=== PATIENT | male | born 1965 | race Caucasian/White ===

== ENCOUNTER 2018-06-10 13:30 | Emergency (ER) | payer OTHER ==
[2018-06-10 14:46] LABS: Absolute Lymphocytes (CBC) 1.3 K/uL (0.7-4.9); Absolute Monocytes 0.5 K/uL (0.1-1.3); Absolute Neutrophil 3.8 K/uL (1.8-8.0); Basophils % 0.8 % (0-1.3); Eosinophils % 4.6 % (0-4.4); Hematocrit 40.8 % (39.6-49.0); Lymphocytes % 21.4 % (15.3-44.8); MPV 8.3 fL (7.6-11.3); Monocytes % 8.5 % (3.3-12.3)
[2018-06-10 15:03] LABS: Albumin 4.2 g/dL (3.4-5.0); Bilirubin Direct 0.2 mg/dL (0-0.2); Bilirubin Total 0.8 mg/dL (0.2-1.0); Potassium 4.1 mmol/L (3.5-5.1); Protein, Total 8.2 g/dL (6.4-8.2)
--- NOTE | 2018-06-10 16:34 | RAD REPORT ---
EXAM DESCRIPTION: CT - Abdomen Pelvis W Contrast - 06/10/2018 4:24 pm CLINICAL HISTORY: Right lower abdominal pain COMPARISON: None. TECHNIQUE: Biphasic, helical CT imaging of the abdomen and pelvis was performed following 100 ml non -ionic IV contrast. Oral contrast was given. All CT scans are performed using dose optimization technique as appropriate and may include automated exposure control or mA/KV adjustment according to patient size. FINDINGS: No suspicious findings in the lung bases. The liver, spleen, and pancreas show no focal findings. Liver shows diffuse fatty infiltration. No ga llbladder or biliary tree abnormality. Symmetric renal function is seen with no hydronephrosis or suspicious renal mass. No pyelonephritis o r acute parenchymal process. No bladder abnormalities. No adrenal abnormalities. No dilated bowel loops or bowel wall thickening. No appendicitis or other acute GI finding. No free a ir, free fluid or inflammatory stranding. No mass or bulky lymphadenopathy. Fat extends into the david gin of each inguinal canal. No congestion or edema node fat within the right inguinal canal or right lower quadrant. No suspicious bony findings. No acute vascular finding. IMPRESSION: Contrast enhanced CT abdomen and pelvis showing no acute cious finding. Fatty infiltration of the liver. Nonacute findings detailed in the body of the report. No abnormality seen to explain right lower abdo men pain.
--- NOTE | 2018-06-10 17:10 | EDPHYS ---
Physician Documentation [facility] Name: Jose Ro Age: 52 yrs Sex: Male : 1965 Arrival Date: 06/10/2018 Time: 13:36 Bed 15 Private MD: ED Physician Javon Hernandez HPI: 06/10 14:11 This 52 yrs old Male presents to ER via Ambulatory with complaints of jmm Abdominal Pain. 14:11 The patient presents with abdominal pain right lower quadrant. Onset: The jmm symptoms/episode began/occurred gradually, 1 day(s) ago. The symptoms do not radiate. Associated signs and symptoms: Pertinent negatives: nausea and vomiting, diarrhea, fever, testicular pain. This is a 52 year old male with a history of htn, hlp that presents to the ED with complaints of right lower abdominal pain beginning yesterday. Symptoms worsened with walking. Patient denies scrotal pain. Denies fever. Denies vomiting or diarrhea. . Historical: - Allergies: 13:38 No Known Allergies; hj - PMHx: 13:38 Hypertension; Hyperlipidemia; hj - PSHx: 13:38 shoulder; cardiac cath; hj - Immunization history:: Adult Immunizations up to date. - Social history:: Smoking status: unknown. - Ebola Screening: : Patient negative for fever greater than or equal to 101.5 degrees Fahrenheit, and additional compatible Ebola Virus Disease symptoms Patient denies exposure to infectious person Patient denies travel to an Ebola-affected area in the 21 days before illness onset No symptoms or risks identified at this time. ROS: 14:11 Constitutional: Negative for fever, chills, and weight loss, Cardiovascular: Negative jmm for chest pain, palpitations, and edema, Respiratory: Negative for shortness of breath, cough, wheezing, and pleuritic chest pain. 14:11 Abdomen/GI: Positive for abdominal pain. 14:11 All other systems are negative. Exam: 14:11 Constitutional: This is a well developed, well nourished patient who is awake, alert, jmm and in no acute distress. Head/Face: atraumatic. Eyes: EOMI, no conjunctival erythema appreciated ENT: Moist Mucus Membranes Neck: Trachea midline, Supple Chest/axilla: Normal chest wall appearance and motion. Cardiovascular: Regular rate and rhythm. No edema appreciated Respiratory: Normal respirations, no respiratory distress appreciated 14:11 Abdomen/GI: Inspection: abdomen appears normal, Bowel sounds: normal, Palpation: soft, moderate abdominal tenderness, in the right lower quadrant. 14:11 Back: ROM is normal. 14:11 Musculoskeletal/extremity: ROM: intact in all extremities. 14:11 Skin: Appearance: Color: normal in color. 14:11 Neuro: Orientation: is normal, Mentation: is normal, Memory: is normal. 14:11 Psych: Behavior/mood is pleasant, cooperative. Vital Signs: 13:38 BP 146 / 94; Pulse 66; Resp 18; Temp 98.3(TE); Pulse Ox 100% on R/A; Weight 83.91 kg; hj Height 6 ft. 0 in. (182.88 cm); Pain 6/10; 15:15 BP 131 / 85; Pulse 60; Resp 16; Pulse Ox 98% on R/A; Pain 3/10; iw 13:38 Body Mass Index 25.09 (83.91 kg, 182.88 cm) hj MDM: 14:11 Patient medically screened. [facility] 17:06 Data reviewed: vital signs, nurses notes. Counseling: I had a detailed discussion with sina the patient and/or guardian regarding: the historical points, exam findings, and any diagnostic results supporting the discharge/admit diagnosis, lab results, radiology results, the need for outpatient follow up, to return to the emergency department if symptoms worsen or persist or if there are any questions or concerns that arise at home. ED course: I discussed with the patient the need to follow up with GI and given early appendicitis return precautions. patient and family understood and agrees with the plan of care. . 06/10 14:14 Order name: Urine Dipstick--Ancillary (enter results) em1 06/10 14:14 Order name: Basic Metabolic Panel; Complete Time: 15:37 [facility] 06/10 14:14 Order name: CBC with Diff; Complete Time: 15:37 [facility] 06/10 14:14 Order name: Creatinine for Radiology; Complete Time: 15:37 [facility] 06/10 14:14 Order name: Hepatic Function; Complete Time: 15:37 [facility] 06/10 14:14 Order name: Lipase; Complete Time: 15:37 [facility] 06/10 14:14 Order name: IV Saline Lock; Complete Time: 14:33 [facility] 06/10 14:14 Order name: Labs collected and sent; Complete Time: 14:33 [facility] 06/10 14:15 Order name: CT Abd/Pelvis - W/Contrast; Complete Time: 16:44 [facility] Administered Medications: No medications were administered Disposition: 17:58 Co-signature as Attending Physician, Javon Hernandez MD I agree with the assessment and kdr plan of care. Disposition: 06/10/18 17:10 Discharged to Home. Impression: Lower abdominal pain, unspecified. - Condition is Stable. - Discharge Instructions: Abdominal Pain, Adult. - Medication Reconciliation Form, Thank You Letter, Antibiotic Education, Prescription Opioid Use form. - Follow up: Private Physician; When: 2 - 3 days; Reason: Recheck today's complaints, Continuance of care, Re-evaluation by your physician. Signatures: Dispatcher [employer] [facility] Javon Hernandez MD MD [facility] Zhang Alvarez PA PA [facility] Alba Greenfield, RN RN iw Slim Mac RN RN Corrections: (The following items were deleted from the chart) 14:20 14:16 Abdomen Pelvis W Con+CT.RAD.BRZ ordered. [facility] 17:29 17:10 06/10/2018 17:10 Discharged to Home. Impression: Lower abdominal pain, iw unspecified. Condition is Stable. Forms are Medication Reconciliation Form, Thank You Letter, Antibiotic Education, Prescription Opioid Use. Follow up: Private Physician; When: 2 - 3 days; Reason: Recheck today's complaints, Continuance of care, Re-evaluation by your physician. [facility]
--- NOTE | 2018-06-10 17:10 | ER ---
Nurse's Notes [facility] Name: Jose Ro Age: 52 yrs Sex: Male : 1965 Arrival Date: 06/10/2018 Time: 13:36 Bed 15 Private MD: Diagnosis: Lower abdominal pain, unspecified Presentation: 06/10 13:36 Presenting complaint: Patient states: yesterday i started having R lower abd pain; hj denies N/V; denies fever and chills; denies diarrhea;. Transition of care: patient was not received from another setting of care. Onset of symptoms was June 10, 2018. Risk Assessment: Do you want to hurt yourself or someone else? Patient reports no desire to harm self or others. Initial Sepsis Screen: Does the patient meet any 2 criteria? No. Patient's initial sepsis screen is negative. Does the patient have a suspected source of infection? No. Patient's initial sepsis screen is negative. Care prior to arrival: None. 13:36 Method Of Arrival: Ambulatory 13:36 Acuity: KB 3 hj Historical: - Allergies: 13:38 No Known Allergies; hj - PMHx: 13:38 Hypertension; Hyperlipidemia; hj - PSHx: 13:38 shoulder; cardiac cath; hj - Immunization history:: Adult Immunizations up to date. - Social history:: Smoking status: unknown. - Ebola Screening: : Patient negative for fever greater than or equal to 101.5 degrees Fahrenheit, and additional compatible Ebola Virus Disease symptoms Patient denies exposure to infectious person Patient denies travel to an Ebola-affected area in the 21 days before illness onset No symptoms or risks identified at this time. Screenin:38 Abuse screen: Denies threats or abuse. Denies injuries from another. Nutritional iw screening: No deficits noted. Tuberculosis screening: No symptoms or risk factors identified. 16:20 Fall Risk None identified. iw Assessment: 14:00 General: Appears in no apparent distress. Behavior is calm, cooperative. Pain: iw Complains of pain in right lower quadrant Pain radiates to right low back. Neuro: Level of Consciousness is awake, alert, obeys commands, Oriented to person, place, time, situation, Moves all extremities. Full function. Cardiovascular: Patient's skin is warm and dry. Respiratory: Respiratory effort is even, unlabored, Respiratory pattern is regular. GI: Bowel sounds present X 4 quads. Abd is soft X 4 quads Abdomen is tender to palpation in right lower quadrant Reports lower abdominal pain, Patient currently denies diarrhea, nausea, vomiting. : Reports pain in suprapubic area Denies burning with urination. Derm: Skin is intact, is healthy with good turgor. Musculoskeletal: Range of motion: intact in all extremities. 14:34 Reassessment: pt finished drinking oral contrast, CT notified. iw Vital Signs: 13:38 BP 146 / 94; Pulse 66; Resp 18; Temp 98.3(TE); Pulse Ox 100% on R/A; Weight 83.91 kg; hj Height 6 ft. 0 in. (182.88 cm); Pain 6/10; 15:15 BP 131 / 85; Pulse 60; Resp 16; Pulse Ox 98% on R/A; Pain 3/10; iw 13:38 Body Mass Index 25.09 (83.91 kg, 182.88 cm) hj ED Course: 13:36 Patient arrived in ED. hj 13:37 Triage completed. hj 13:39 Arm band placed on right wrist. hj 13:40 Patient has correct armband on for positive identification. iw 13:56 Alba Greenfield, RN is Primary Nurse. iw 13:59 Zhang Alvarez PA is PHCP. [facility] 13:59 Javon Hernandez MD is Attending Physician. jmm 14:26 Initial lab(s) drawn, by nc, sent to lab. Inserted saline lock: 20 gauge in right dh3 antecubital area, using aseptic technique. Blood collected. 16:[address] via wheelchair. sj 16:24 CT Abd/Pelvis - W/Contrast In Process Unspecified. EDMS 17:00 No provider procedures requiring assistance completed. iw 17:28 IV discontinued, intact, bleeding controlled, No redness/swelling at site. Pressure iw dressing applied. Administered Medications: No medications were administered Outcome: 17:10 Discharge ordered by . jmm 17:28 Discharged to home ambulatory, with family. iw 17:28 Condition: good 17:28 Discharge instructions given to patient, family, Instructed on discharge instructions, follow up and referral plans. Demonstrated understanding of instructions, follow-up care. 17:29 Patient left the ED. iw Signatures: Dispatcher [employer] EDMS Natasha Alvarezel, PA PA jmm Tong, Linsey sj Jean Pierre, Alba, RN RN iw Bubba, Slim, RN RN Lorna Valladares 3 Corrections: (The following items were deleted from the chart) 13:40 13:38 Pulse 66bpm; Resp 18bpm; Pulse Ox 100% RA; Temp 98.3F Temporal; 83.91 kg; Height hj 6 ft. 0 in.; BMI: 25.0; Pain 6/10; hj
[2018-06-10 20:01] LABS: Urine Blood NEGATIVE (NEG); Urine Glucose NEGATIVE (NEG); Urine Protein NEGATIVE (NEG); Urine Specific Gravity <1.005 (1.005-1.030)
== END 2018-06-10 17:29 | disposition home or self-care (01) ==
LOC: ER 13:30
DX: R10.31 Right lower quadrant pain (principal); I10 Essential (primary) hypertension
CPT/HCPCS: 36415; 74177; 80048; 80076; 81003; 83690; 85025; 99284; Q9967

== ENCOUNTER 2024-07-13 10:27 | Observation (INO) | payer BC, OTHER ==
--- OUTSIDE RECORDS SUMMARY | 2024-07-13 10:30 | XMS REPORT | Continuity of Care Document ---
Author Name Unknown Address [address] [facility] [address] [place] [address] Organization [facility] [place] Address [address] [facility] [address] [place] [address] Care Team Providers Care Victorian Literature Professor Name Role Phone Linsey Talamantes MD Primary Care Physician LAB90 Attending Clinician Unavailable LINSEY TALAMANTES Attending Clinician UnaJOSE D Ahuja Attending Clinician Unavailab José Thomas Attending Clinician UnavailCALLY Novoa Attending Clinician Unavailable Cally Alvarado Attending Clinician [phone] Payers Payer Name Policy Type Policy Number Effective Date Expirati on Date Source [facility] 2 [id number] 2023 00:00:00 Problems Condition Name Condition Details Condition Category Status Onset Date Resolution Date Last Treatment Date Treating Clinician Comments Source Hx of colonic polyp Hx of colonic polyp Disease Active 05-17 00:00: 00 Katelyn Seybold - Externa l Rotator cuff disorder, left Rotator cuff disorder, left Disease Active 05-17 00:00: 00 Katelyn Seybold - Externa l Encounter for screening for diabetes mellitus Encounter for screening for diabetes mellitus Disease Active 05-17 00:00: 00 Katelyn Seybold - Externa l Hypertensi on Hypertensi on Disease Active 2020-02 00:00: 00 Katelyn Mcgrathybold - Externa l Frequency of urination Frequency of urination Disease Active 2020-02 00:00: 00 Katelyn Seybold - Externa l 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 Disease Active 2020-02 2- 00:00: 00 Katelyn Seybold - Externa l Chronic prostatiti s Chronic prostatiti s Disease Active 2020-02 2 00:00: 00 Katelyn Seybold - Externa l Low back pain without sciatica Low back pain without sciatica Disease Active 2020-02 2 00:00: 00 Katelyn Seybold - Externa l Abdominal pain Abdominal pain Disease Active 2020-02 2 00:00: 00 Katelyn Seybold - Externa l Hyperlipid emia Hyperlipid emia Disease Active 2020-02 2- 00:00: 00 Katelyn Seybold - Externa l Allergies, Adverse Reactions, Alerts Allergy Name Allergy Type Status Severity Reaction(s) Onset Date Inactive Date Treating Clinician Comments Source No Known Allergie s DA Active U 4-05 00:00: 00 LUIS ENRIQUE Weston No Known Allergie s DA Active U 2-15 00:00: 00 STLSJX Levoflox acin Propensi ty to adverse reaction s Active 2020-02 2- 00:00: 00 Katelyn Warner No Known Allergie s DA Active U 10-29 00:00: 00 [facility] Social History Social Habit Start Date Stop Date Quantity Comments Source Sexual orientation Fidencio de jesus Timmy - External Exposure to SARS-CoV-2 (event) Not sure Katelyn braun History of Social function 2023-11-22 00:00:00 2023-11-22 00:00:00 Katelyn Warner - External Tobacco use and exposure 2023-05-18 00:00:00 2023-05-18 00:00:00 Smokeless tobacco non-user Katelyn Timmy - External Sex 2020-05-21 17:12:38 2020-05-21 17:12:38 Male (finding) Katelyn Mcgrathaparna - External Sex Assigned At 1965 00:00:00 1965 00:00:00 Male [facility] Smoking Status Start Date Stop Date Source Unknown if ever smoked [facility] Never smoked tobacco Katelyn Warner - External Medications Ordered Medication Name Filled Medication Name Start Date Stop Date Current Medication? Ordering Clinician Indication Dosage Frequency Signature (SIG) Comments Components Source Aspirin 81 MG oral Tablet Delayed Response 11-21 10:23: 48 Yes 81mg QD Take 1 tablet (81 mg total) by mouth daily. Katelyn zheng Doxycycline Hyclate 100 MG oral Tablet 11-21 00:00: 00 Yes [id number] 100mg Q.5D Take 1 tablet (100 mg total) by mouth 2 times daily. Katelyn zheng levoFLOXaci n 500 MG oral Tablet 11-21 00:00: 00 11-21 00:00 :00 No [id number] 500mg QD Take 1 tablet (500 mg total) by mouth daily. Katelyn zheng Rosuvastati n Calcium 10 MG oral Tablet 11-11 00:00: 00 Yes [id number] 10mg QD Take 1 tablet (10 mg total) by mouth nightly. Katelyn zheng Esomeprazol e Magnesium (Nexium) 20 MG Capsule. 05-27 00:00: 00 No 20MG Daily [facility] Aspirin 81 MG oral Tablet Delayed Response 05-17 15:12: 13 Yes 81mg Take 1 tablet (81 mg total) by mouth daily. Katelyn zheng Losartan Potassium (COZAAR) 100 MG oral Tablet 3-14 00:00: 00 Yes Katelyn zheng Amlodipine Besylate (NORVASC) 5 MG oral Tablet - 00:00: 00 Yes 5mg Q.5D Take 1 tablet (5 mg total) by mouth 2 times daily FOR 90 DAYS. Katelyn zheng Hydrocodone Bit/Apap 5/325 ([place]) 5 MG/325 MG Tab 18 10:37: 29 05-27 13:38 :39 No 1TAB Every 6 Hours [facility] Amlodipine Besylate (Norvasc) 5 MG Tablet 04-08 01:00: 00 No 5MG Daily [facility] Aspirin (Ecotrin) 81 MG Tab - 01:00: 00 No 81MG Daily [facility] Cholecalcif daria (Vitamin D3) (Vitamin D3) 50 MCG Capsule 04-08 01:00: 00 No 50MCG Daily [facility] Losartan Potassium 04-08 01:00: 00 No 100MG Daily [facility] Rosuvastati n (Crestor) 10 MG Tab - 01:00: 00 No 10MG Daily [facility] Ubidecareno ne (Co Q-10) 200 MG Capsule - 01:00: 00 No 200MG Daily [facility] Vitamin B Complex - 01:00: 00 No 1CAP Daily [facility] Celecoxib 200 MG oral Capsule - 00:00: 00 05-17 00:00 :00 No [id number] TAKE 1 CAPSULE BY MOUTH TWICE A DAY Katelyn zheng Celecoxib (CeleBREX) 200 MG oral Capsule 2020-02- 00:00: 00 Yes [id number] 200mg Take 1 capsule (200 mg total) by mouth 2 times daily Katelyn Warner TRIMETHOPRI M-SULFAMETH OXAZOLE 800-160 MG oral Tablet 2020-02 00:00: 00 03-03 05:59 :00 No [id number] 1{tbl} Take 1 tablet by mouth 2 times daily Katelyn Warner Rosuvastati n Calcium 10 MG oral Tablet 11-11 00:00: 00 Yes Katelyn Warner Losartan Potassium 25 MG oral Tablet 11-11 00:00: 00 Yes Katelyn Warner Amlodipine Besylate 2.5 MG oral Tablet 08-06 00:00: 00 Yes 2.5mg Take 1 tablet (2.5 mg total) by mouth daily Katelyn Warner Losartan Potassium 50 MG oral Tablet 08-06 00:00: 00 Yes 50mg Take 1 tablet (50 mg total) by mouth daily Katelyn Warner Lovastatin 10 MG oral Tablet 08-06 00:00: 00 01-24 00:00 :00 No 10mg Take 1 tablet (10 mg total) by mouth nightly Katelyn Warner Vital Signs Vital Name Observation Time Observation Value Comments S ource Systolic blood pressure 2023-11-22 15:21:00 134 mm[Hg] Katelyn Rodriguez ld - External Diastolic blood pressure 2023-11-22 15:21:00 78 mm[Hg] Katelyn Rodriguez ld - External Heart rate 2023-11-22 15:21:00 88 /min Cande Warner - External Body temperature 2023-11-22 15:21:00 36.33 Meche Katelyn Warner - External Respiratory rate 2023-11-22 15:21:00 15 /min Katelyn Warner - External Body height 2023-11-22 15:21:00 182.9 cm Noelle Warner - External Body weight 2023-11-22 15:21:00 79.379 kg Noelle Warner - External BMI 2023-11-22 15:21:00 23.73 kg/m2 Noelle Warner - External WEIGHT 2023-05-28 13:37:00 81.331463 kg HEIGHT 2023-05-28 13:37:00 185.42 cm Systolic blood pressure 2023-05-18 20:07:00 122 mm[Hg] Katelyn Seybo ld - External Diastolic blood pressure 2023-05-18 20:07:00 74 mm[Hg] Katelyn Seybo ld - External Heart rate 2023-05-18 20:07:00 72 /min Kelse y Seybold - External Body temperature 2023-05-18 20:07:00 36.72 Meche Katelyn Seybold - External Respiratory rate 2023-05-18 20:07:00 18 /min Katelyn Seybold - External Body height 2023-05-18 20:07:00 182.9 cm Noelle ey Seybold - External Body weight 2023-05-18 20:07:00 82.101 kg Noelle ey Seybold - External BMI 2023-05-18 20:07:00 24.55 kg/m2 Noelle ey Seybold - External WEIGHT 2022-04-08 16:05:00 83.303441 kg HEIGHT 2022-04-08 16:05:00 185.42 cm Systolic blood pressure 2021-01-24 14:16:00 140 mm[Hg] Katelyn Seybo ld Diastolic blood pressure 2021-01-24 14:16:00 78 mm[Hg] Katelyn Seybo ld Heart rate 2021-01-24 14:16:00 70 /min Kelse y Seybold Body temperature 2021-01-24 14:16:00 36.67 Meche Katelyn Seybold Respiratory rate 2021-01-24 14:16:00 14 /min Katelyn Seybold Body weight 2021-01-24 14:16:00 83.008 kg Noelle ey Seybold Oxygen saturation in Arterial blood by Pulse oximetry 2021-01-24 14:16:00 100 /min Katelyn Seybo ld Procedures Procedure Date / Time Performed Performing Clinicia n Source XR Chest Pa & Lat STANDARD 2023-05-28 13:23:00 [facility] EKG 12 Lead 2023-05-28 13:23:00 [facility] Encounters Start Date/Time End Date/Time Encounter Type Admission Type Attending [facility] Care Department Encounter ID Source 2022-04-14 15:15:01 Outpatient [facility] [id number] [facility] 2022-02-27 08:41:01 Outpatient [facility] [id number] [facility] 2022-02-26 15:15:02 Outpatient [facility] [id number] [facility] 2021-10-31 16:12:02 Outpatient [facility] [id number] [facility] 2021-10-17 10:05:02 Outpatient [facility] [id number] [facility] 2021-10-15 09:32:02 Outpatient [facility] [id number] [facility] 2021-06-12 14:01:05 Outpatient [facility] [id number] [facility] 2021-06-10 09:33:04 Outpatient [facility] [id number] [facility] 2023-11-22 11:25:00 2023-11-22 11:25:00 Outpatient LAB90 KATELYN ARCHIBALD [id number] [facility] 2023-11-22 10:30:00 2023-11-22 10:30:00 Outpatient LINSEY TALAMANTES [id number] [facility] 2023-11-12 00:00:00 2023-11-12 00:00:00 Outpatient JOSE D REAL [id number] [facility] 2023-06-04 11:18:00 2023-06-04 11:18:00 Outpatient Luis E [place] José [facility] [id number] [facility] 2023-05-28 13:00:00 2023-05-28 13:01:00 Outpatient José Mcleod [facility] [id number] [facility] 2023-05-18 16:15:00 2023-05-18 16:15:00 Outpatient REUBEN ARCHIBALD KATELYN [id number] [facility] 2023-05-18 15:30:00 2023-05-18 15:30:00 Outpatient JOSE D REAL [facility] [id number] [facility]23-[facility]-12 15:00:00 2023-05-12 15:00:00 [id number] [facility] 2023-05-07 09:00:00 2023-05-07 09:00:00 Outpatient LINSEY TALAMANTES KATELYN ARCHIBALD [id number] [facility] 2022-04-10 05:45:00 2022-04-10 10:38:00 Outpatient R IeJosé hi [facility] [id number] [facility] 2022-03-31 08:46:00 2022-03-31 08:47:00 Outpatient R IeJosé hi [facility] [id number] [facility] 2022-02-11 07:00:00 2022-02-11 07:00:00 [facility] [id number] [facility] 2022-01-06 08:00:00 2022-01-21 23:59:00 Outpatient R José Israel [facility] [id number] [facility] 2021-12-30 08:07:00 2021-12-30 08:07:00 Outpatient R IeJosé hi [facility] [id number] [facility] 2021-12-09 08:00:00 2021-12-22 23:59:00 Outpatient R IeJosé hi [facility] [id number] [facility] 2021-12-02 08:00:00 2021-12-02 08:00:00 Outpatient R José Israel [facility] [id number] [facility] José Castanon 2021-11-25 08:12:00 2021-11-25 08:12:00 Outpatient R José Israel [facility] [id number] [facility] 2021-10-17 11:53:00 2021-10-17 11:54:00 Outpatient R José Israel [facility] [id number] [facility] 2021-03-22 00:00:00 2021-03-22 00:00:00 Outpatient CALLY GARNER KATELYN ARCHIBALD [id number] [facility] 2021-03-05 00:00:00 2021-03-05 00:00:00 Outpatient ALBINLINSEY KATELYN ARCHIBALD [id number] [facility] 2021-02-13 00:00:00 2021-02-13 00:00:00 Outpatient CALLY GARNER KATELYN ARCHIBALD [id number] [facility] 2021-01-24 09:25:00 2021-01-24 09:25:00 Outpatient LAB90 KATELYN ARCHIBALD [id number] [facility] 2021-01-24 08:30:00 2021-01-24 09:00:00 Office Visit BeatrizCally zheng Jackson [id number] [facility] Results Test Description Test Time Test Comments Results Result Co mments Source [id number] 14:30:00* Test Item Value Reference Range Interpretation Comme nts Hematology (test code = WBCT) 6.5 10x3/uL 3.5-10.5 N Hematology (test code = RBCT) 4.19 10x6/uL 4.32-5.72 L Hematology (test code = HGBT) 13.7 g/dL 13.5-17.5 N Hematology (test code = HCTT) 39.3 % 38.8-50.0 N Hematology (test code = MCV) 93.8 fl 81.2-95.1 N Hematology (test code = MCH) 32.7 pg 27.0-33.0 N Hematology (test code = MCHC) 34.9 g/dL 32.0-36.0 N Hematology (test code = RDW) 11.9 % 11.5-14.5 N Hematology (test code = PLTT) 222 10x3/uL 150-450 N Hematology (test code = MPV) 9.9 fl 7.4-10.4 N Hematology (test code = %NEUT) 57.5 % 40.0-75.0 N Hematology (test code = %LYMPH) 23.5 % 18.0-47.0 N Hematology (test code = %MONO) 10.4 % 0.0-10.0 H Hematology (test code = %EOS) 7.1 % 0.0-6.0 H Hematology (test code = %BASO) 1.2 % 0.0-2.0 N Hematology (test code = %IG) 0.3 % 0-5 N Hematology (test code = %NRBC) 0.0 % 0.0-0.0 N Hematology (test code = NEUT#) 3.75 10x3/uL 1.5-8.4 N Hematology (test code = LYMPH#XN) 1.5 10x3/uL 0.7-4.9 N Hematology (test code = MONO#) 0.68 10x3/uL 0.0-1.1 N Hematology (test code = EOS#) 0.46 10x3/uL 0.0-0.5 N Hematology (test code = BASO#) 0.08 10x3/uL 0.0-0.2 N Hematology (test code = IG#) 0.02 10x3/uL 0.00-0.50 N Hematology (test code = NRBC#) 0.00 10x3/uL None Seen Serum or plasma sodium measurement (moles/volume)2023-05-28 13:45:00* Test Item Value Reference Range Interpretation Comme nts Sodium Level (test code = 2951-2) 139 mmol/L 136-145 [facility] or plasma potassium measurement (moles/volume) 2023-05-28 13:45:00* Test Item Value Reference Range Interpretation Comme [facility] Potassium Level (test code = 2823-3) 4.2 mmol/L 3.5-5.1 [facility] or plasma chloride measurement (moles/volume) 2023-05-28 13:45:00* Test Item Value Reference Range Interpretation Comme [facility] Chloride Level (test code = 2075-0) 103 mmol/L 98-107 [facility] or plasma carbon dioxide, total measurement (moles/volume)2023-05-28 13:45:00* Test Item Value Reference Range Interpretation Comme [facility] Carbon Dioxide Level (test c ode = 2027-9) 27 mmol/L 22-29 [facility] or plasma anion [id number] 13:45:00* Test Item Value Reference Range Interpretation Comme [facility] Anion Gap (test code = 31592-0) 13 mmol/L 10-20 [facility] or plasma urea nitrogen measurement (mass/volume)2023-05-28 13:45:00* Test Item Value Reference Range Interpretation Comme [facility] Blood Urea Nitrogen (test co de = 3094-0) 15 mg/dL 8.4-25.7 [facility] or plasma creatinine measurement (mass/volume) 2023-05-28 13:45:00* Test Item Value Reference Range Interpretation Comme [facility] Creatinine (test code = 2160-0) 1.16 mg/dL 0.7-1.3 [facility]/1.73 sq M.predicted [Volume Rate/Area] in Serum, Plasma [id number] 13:45:00* Test Item Value Reference Range Interpretation Comme [facility] Estimated GFR (CKD-EPI 2020) (test code = 32016-3) 73 [facility] [Mass/volume] in Serum or [id number] 13:45:00* Test Item Value Reference Range Interpretation Comme [facility] Glucose Level (test code = 2345-7) 95 mg/dL 70-105 [facility] or plasma calcium measurement (mass/volume) 2023-05-28 13:45:00* Test Item Value Reference Range Interpretation Comme [facility] Calcium Level (test code = 64008-8) 9.9 mg/dL 7.8-10.44 [facility]uk[facility] [#/volume] in Blood by Automated count 2023-05-28 13:45:00* Test Item Value Reference Range Interpretation Comme [facility] White Blood Count (test code = 6690-2) 6.5 10x3/uL 3.5-10.5 [facility] erythrocytes automated count (number/volume) 2023-05-28 13:45:00* Test Item Value Reference Range Interpretation Comme [facility] Red Blood Count (test code = 789-8) 4.19 10x6/uL 4.32-5.72 [facility] (mass/volume)2023-05-28 13:45:00* Test Item Value Reference Range Interpretation Comme [facility] Hemoglobin (test code = 718-7) 13.7 g/dL 13.5-17.5 [facility] eryth[facility] mean corpuscular volume 2023-05-28 13:45:00* Test Item Value Reference Range Interpretation Comme [facility] Mean Corpuscular Volume (lacey t code = 787-2) 93.8 fl 81.2-95.1 [facility] eryth[facility] mean corpuscular hemoglobin (mass per erythrocyte)2023-05-28 13:45:00* Test Item Value Reference Range Interpretation Comme [facility] Mean Corpuscular Hemoglobin (test code = 785-6) 32.7 pg 27.0-33.0 [facility] eryth[facility] mean corpuscular hemoglobin concentration measurement (mass/[id number] 13:45:00* Test Item Value Reference Range Interpretation Comme [facility] Mean Corpuscular Hemoglobin Concent (test code = 786-4) 34.9 g/dL 32.0-36.0 [facility] distribution width ratio 2023-05-28 13:45:00* Test Item Value Reference Range Interpretation Comme [facility] Red Cell Distribution Width (test code = 788-0) 11.9 % 11.5-14.5 [facility] blood platelet count (count/volume) 2023-05-28 13:45:00* Test Item Value Reference Range Interpretation Comme [facility] Platelet Count (test code = 777-3) 222 10x3/uL 150-450 [facility] platelet mean [id number] 13:45:00* Test Item Value Reference Range Interpretation Comme [facility] Mean Platelet Volume (test c ode = 39975-1) 9.9 fl 7.4-10.4 [facility] neutrophils/100 [id number] 13:45:00* Test Item Value Reference Range Interpretation Comme [facility] Neutrophils % (test code = 770-8) 57.5 % 40.0-75.0 [facility]ymph[facility]/100 leukocytes in Blood by Automated count 2023-05-28 13:45:00* Test Item Value Reference Range Interpretation Comme [facility] Lymphocytes % (test code = 736-9) 23.5 % 18.0-47.0 [facility] monocytes/100 [id number] 13:45:00* Test Item Value Reference Range Interpretation Comme [facility] Monocytes % (test code = 5905-5) 10.4 % 0.0-10.0 [facility] blood eosinophils/100 [id number] 13:45:00* Test Item Value Reference Range Interpretation Comme [facility] Eosinophils % (test code = 713-8) 7.1 % 0.0-6.0 [facility] basophils/100 [id number] 13:45:00* Test Item Value Reference Range Interpretation Comme [facility] Basophils % (test code = 706-2) 1.2 % 0.0-2.0 [facility] neutrophils automated count (number/volume) 2023-05-28 13:45:00* Test Item Value Reference Range Interpretation Comme [facility] Neutrophils # (test code = 751-8) 3.75 10x3/uL 1.5-8.4 [facility] monocytes automated count (number/volume) 2023-05-28 13:45:00* Test Item Value Reference Range Interpretation Comme [facility] Monocytes # (test code = 742-7) 0.68 10x3/uL 0.0-1.1 [facility] eosinophils automated count (count/volume) 2023-05-28 13:45:00* Test Item Value Reference Range Interpretation Comme nts Eosinophils # (test code = 711-2) 0.46 10x3/uL 0.0-0.5 [facility] blood basophil count (count/volume) 2023-05-28 13:45:00* Test Item Value Reference Range Interpretation [facility] Bas[facility] # (test code = 704-7) 0.08 10x3/uL 0.0-0.2 [facility] 09:37:00* Test Item Value Reference Range Interpretation [facility] Coagulation (test code = PT-T) 10.0 sec 9.5-12.1 N Coagulation (test code = INR) 0.9 INR Reference Range -------The recommended therapeutic ranges for oral anticoagulanttreatments are: ------ Standard Dose: 2.0 - 3.0 High Risk: 2.5 - 3.5 Anticoagulant? [id number] 09:37:00* Test Item Value Reference Range Interpretation [facility] Chemistry (test code = NA-T) 138 mmol/L 136-145 N Chemistry (test code = K-T) 4.3 mmol/L 3.5-5.1 N Chemistry (test code = CL) 104 mmol/L 98-107 N Chemistry (test code = CO2) 26 mmol/L 22-29 N Chemistry (test code = ANGP) 12 mmol/L 10-20 N Chemistry (test code = BUN) 17 mg/dL 8.4-25.7 N Chemistry (test code = CREATT) 1.11 mg/dL 0.7-1.3 N Chemistry (test code = EGFRCR) 77 Reference Range for Estimated GFR: Greater than 90 mL/min/1.73 w2Pyourgxm eGFR is based on the CKD-EPI 2020 equation thatdoes not use a race coefficient. Chemistry (test code = GLU-T) 99 mg/dL 70-105 N Chemistry (test code = CA) 9.7 mg/dL 7.8-10.44 N [id number] 09:29:00* Test Item Value Reference Range Interpretation Comme nts Hematology (test code = WBCT) 4.5 10x3/uL 3.5-10.5 N Hematology (test code = RBCT) 4.28 10x6/uL 4.32-5.72 L Hematology (test code = HGBT) 13.8 g/dL 13.5-17.5 N Hematology (test code = HCTT) 39.7 % 38.8-50.0 N Hematology (test code = MCV) 92.8 fl 81.2-95.1 N Hematology (test code = MCH) 32.2 pg 27.0-33.0 N Hematology (test code = MCHC) 34.8 g/dL 32.0-36.0 N Hematology (test code = RDW) 11.7 % 11.5-14.5 N Hematology (test code = PLTT) 220 10x3/uL 150-450 N Hematology (test code = MPV) 9.5 fl 7.4-10.4 N Hematology (test code = %NEUT) 51.6 % 40.0-75.0 N Hematology (test code = %LYMPH) 29.1 % 18.0-47.0 N Hematology (test code = %MONO) 10.1 % 0.0-10.0 H Hematology (test code = %EOS) 7.4 % 0.0-6.0 H Hematology (test code = %BASO) 1.6 % 0.0-2.0 N Hematology (test code = %IG) 0.2 % 0-5 N Hematology (test code = %NRBC) 0.0 /100 WBC 0.0-0.0 N Hematology (test code = NEUT#) 2.3 10x3/uL 1.5-8.4 N Hematology (test code = LYMPH#XN) 1.3 10x3/uL 0.7-4.9 N Hematology (test code = MONO#) 0.5 10x3/uL 0.0-1.1 N Hematology (test code = EOS#) 0.3 10x3/uL 0.0-0.5 N Hematology (test code = BASO#) 0.1 10x3/uL 0.0-0.2 N Hematology (test code = IG#) 0.01 10x3/uL 0.00-0.50 N XR Chest Pa Lat STANDARD [facility] BRYANName: NANDO SANTOS : 1965 [facility]: TOMNANDO MERCHANT [address] [place] [address] Phys: [place] [address] : 1965 Age: 57 SEX:M Exam Date: 05/28/23 Status: REG CLI Acct: [id number] Loc: LABBT Pt Unit #: [id number] Report #: [id number] CC: José Israel MD : IMAGING SERVICES REPORT Report Status: Signed Order # Category/Exam [id number]/XR Chest Pa Lat STANDARD ([id number]): . Results EXAM: Two views chest PROVIDED CLINICAL HISTORY: Preop COMPARISON: 03/31/2022 FINDINGS: Heart and mediastinum: Cardiac and mediastinal silhouette iswithin normal limits. Lung parenchyma: No focal consolidation evident. Pleural space: No pleural fluid or pneumothorax evident. Other: None. IMPRESSION: No evidence for an acute cardiopulmonary process. Reported By: Abdirahman Antoine MDElectronically Signed Date/Time: 05/28/231408 Technologist: Dictated Date/Time: 05/28/231408 Transcribed Date/Time:XR Chest Pa Lat STANDARDLUIS ENRIQUE [facility] JOSÉ Reeceme: NANDO SANTOS : 1965 [facility]: [facility] NANDO SANTOS [address] [facility] Phys: [place] [address] : 1965 Age: 56 SEX:M Exam Date: 03/31/22 Status: REG CLI Acct: [id number] Loc: LABBT Pt Unit #: [id number] Report #: [id number] CC: José Israel MD IMAGING SERVICES REPORT Report Status: Signed Order # Category/Exam [id number] RAD/XR Chest Pa Lat STANDARD ([id number]): . Results EXAM: Two views chest PROVIDED CLINICAL HISTORY:Preoperative evaluation. COMPARISON: None FINDINGS: Cardiac silhouette and pulmonary vasculature are within normal limits. Minimal biapical pleural thickening. Lungs otherwise clear without consolidation or pleural fluid. The osseous structures have a normal appearance. IMPRESSION: No acute cardiopulmonary process. Reported By:Marcello Henriquez MD Electronically Signed Date/Time: 03/31/22920 Technologist: Dictated Date/Time:03/31/22920 Transcribed Date/Time:MRI Upper Ext Jt Rt WO Con [facility] Shade: TOMNANDO : 1965 [facility]: [facility] [address] Phys: [place] [address] : 1965 Age: 56 SEX:M [phone] Exam Date: 10/17/21 Status: REG CLI Acct: [id number] [facility] Unit #: [id number] Report #: [id number] CC: José Israel MD MRI REPORTOrder # Category/Exam [id number] MRI/MRI Upper Ext Jt Rt WO Con ([id number]): . Results REASON FOR EX AM: 56 years old Male with internal derangement of the right shoulder. History of right shoulder surgery 20 years prior. TIME OF EXAM: 10/17/2021 12:25 PM COMPARISON: Right shoulder radiographs 10/14/2021 TECHNIQUE: Routine noncontrast multiplanar, multisequence MRI of the right shoulder was obtained. FINDINGS: FLUID: Glenohumeral joint: physiologic Long head of the biceps tendon sheath: physiologic Subacromial subdeltoid bursa: Edema ROTATOR CUFF: Postoperative changes from prior rotator cuff repair. There is associated susceptibility artifact in the deltoid muscle. The conjoined tendon is thinned/attenuated at the critical zone. There is low to intermediate gradearticular sided tearing of the conjoint tendon at the insertion. Intermediate grade articular sided tearing of the distal tendonfibers of the subscapularis. Teres minor is intact. Muscle volume: Maintained Long head of the biceps tendon: Intra-articular portion not visualized LABRUM: The labrum is not well evaluate on this convention MRI; however there is likely tearing of the chondral-labral junction of the anterior-inferior labrum. Superior labral anterior posterior tear also noted with extension into the biceps labral anchor. GLENOHUMERAL CARTILAGE: Low-grade chondral thinning. BONES: Intraosseous ganglion at the lesser tuberosity. ACROMIOCLAVICULAR JOINT: The right acromion has a type I, flat undersurface. There is anterior downsloping. There is moderate degenerative change at the AC joint. OTHER: No axillary adenopathy. IMPRESSION: 1. Findings of prior rotator cuff repair with thinned appearance of the conjoint tendon at the critical zone. Low to intermediate grade articular sided tearing of the conjoint tendon at the footprint. 2. Intermediate grade articular sided tearing of the distal fibers of the subscapularis tendon. 3. Intra-articular long head biceps tendon not visualized likely due to tearing.4. Superior labral anterior posterior type IV tear (extension into the biceps labral anchor). 5. Anterior downsloping of the acromion which may predispose to rotator cuff impingement. 6. 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 Subacromial subdeltoid bursitis. Reported By: Damien Vail MD ElectronicallySigned Date/Time: 10/17/21 1425 Technologist: NANCIE Dictated Date/Time: 10/17/21 1414 Transcribed Date/Time: Notes Date/Time Note Provider Source 2023-11-22 10:23:54 Chief Complaint Patient presents with Abdominal Pain Low abdominal pain that radiates around to back for about a month. Elvira Dean MA II Elvira Dean MA, II [facility] 2023-06-05 11:48:00 [facility] Name: NANDO SANTOS [address] : 1965, Age: 57, Sex: [place] [phone] Unit #: [id number], Status: REG [facility] [place] [phone] [place] [facility] [place] Dictated by: José Israel MD Admission Date: Report #: [id number] Discharge Date: CC: José Israel MD OPERATIVE NOTE Report Status: Signed DATE OF PROCEDURE: 06/04/2023 PREOPERATIVE DIAGNOSIS: Left shoulder impingement, rotator cuff tear. POSTOPERATIVE DIAGNOSIS: Left shoulder impingement, rotator cuff tear. PROCEDURE PERFORMED: Left open shoulder subacromial decompression, followed by an open rotator cuff repair. SURGEON: Lindy. HIGH SCHOOL DRAFTING TEACHER: ALESSANDRO Lucas. The library serials assistant surgeon was present throughout the procedure to include the approach, the repair of the cuff, and the closure of the deltoid as well as the skin incision. The patient did go to recovery room in stable condition. ANESTHESIA: The patient had general anesthetic as well as preoperative block. IMPLANTS: We used two double-loaded titanium rotator cuff anchors. INDICATIONS: Nando is a 57-year-old male, who had a previous left shoulder surgery, but over the last 6 months to a year, has developed significant pain and weakness in the left arm. MRI scan showed him to have significant rotator cuff pathology, and at this time, he wished to have surgery. DESCRIPTION OF PROCEDURE: After all consents have been explained and signed, the patient was taken back to the operating room and at this time was given a general anesthetic. Once the level of anesthesia was appropriate, he was placed in a modified beach chair position with all bony prominences well padded. The left shoulder and upper extremity were then prepped and draped in standard surgical fashion. A 10 blade was used to make an incision obliquely from just lateral to the AC joint down to the side of the arm just down through the skin. The Bovie was then used to coagulate any brisk venous bleeding. Full-thickness periosteal flap was then taken to expose the anterior acromion, and the deltoid fascia was opened sharply, and finger dissection was then used to split the deltoid fibers in line to get down to the underlying rotator cuff and bursal surface. Bursal tissue was removed at this time. Bicipital groove was palpated. It was felt to be empty, and at this time, we placed saline through the cuff to show us where the significant joint surface tear of the supraspinatus was located. The area balled up nicely, and we were able to palpate the defect and then used 15 blade to incise right there to expose our tear. Significant amount of rotator cuff tissue was then removed sharply to gain a good tissue. Once we had done that, we then removed all soft tissue from our bony insertion and gently decorticated with a combination of a curette and a rongeur. At this time, we then used the punch to place some sdv pilot/navigator/dds operator holes as well as to place a couple of more holes to aid in healing. We then placed two double-loaded titanium anchors just off the articular surface. We then used the scorpion device to place the stitches through our rotator cuff tendon. We then tagged these performing our primary repair just off the articular surface. We then took the sutures and ran them underneath the intact rotator cuff tendon that was still attached more laterally and then tied these as well to perform a variant of a double-row repair. This gave us a very nice footprint for healing. Once this was done, the arm was taken through full range of motion, was found to be zero tension on our repair site with the arm at the side. No biceps tenodesis had to be performed as we did not find the biceps in the joint nor was there any biceps palpable in the bicipital groove. Therefore, at this time, we thoroughly irrigated and dried. We then placed multiple Ethibond sutures in Lobo-Ronal fashion through the deltoid sleeve and reattached to the acromion. We then overran a large Vicryl followed by 2-0 Vicryl and surgical ning on the skin. Sterile dressing was applied. The patient was then placed in a sling and an abduction pillow. He was then awakened and taken to recovery room in stable condition. All counts were correct at end of the case and he did receive preoperative IV antibiotics. Job ID: [id number] Dictated by: José Israel MD <Electronically signed by José Israel MD> 06/07/23 0748 Dictated Date/Time: 06/05/23 1014 Transcribed Date/Time: 06/05/23 1144 Summer Clerk: José Cooper [facility] 2023-05-18 15:11:48 Chief Complaint Patient presents with Physical Fasting for labs .Juliana Frank LVN . [facility] 2022-04-10 15:39:00 [facility] Name: NANDO SANTOS [address] : 1965, Age: 56, Sex: [place] [address] Unit #: [id number], Status: [facility] [phone] Location[place] [facility] [place] Dictated by: José Israel MD Admission Date: Report #: [id number] Discharge Date: 04/10/22 CC: José Israel MD OPERATIVE NOTE Report Status: Signed DATE OF PROCEDURE: 04/10/2022 PREOPERATIVE DIAGNOSES: Right shoulder partial cuff tear with previous long head of biceps rupture with a portion of the biceps tendon still attached to the labrum as well as the superior labral tear and acromioclavicular joint arthritis. POSTOPERATIVE DIAGNOSES: Right shoulder partial cuff tear with previous long head of biceps rupture with a portion of the biceps tendon still attached to the labrum as well as the superior labral tear and acromioclavicular joint arthritis. PROCEDURES PERFORMED: Right shoulder arthroscopy with debridement of partial cuff tear, labrum, remnant of the biceps attached to the labrum as well as removal of the copious subacromial bursa. This was followed by open distal clavicle excision. SURGEON: José Israel MD HIGH SCHOOL DRAFTING TEACHER: Trell Reardon PA-C, the library serials assistant surgeon was present throughout the open distal clavicle portion of the procedure to include the approach, removal of the clavicle, and cleaning of the joint, and the closure of the tissue in this wound as well as the portals. BLOOD LOSS: Minimal. COMPLICATIONS: None. ANESTHESIA: The patient did have a general anesthetic as well as a preoperative block. IMPLANTS: We did not use any implants. DISPOSITION: He went to recovery room in stable condition. INDICATIONS: This active 56-year-old male, who has had pain since he ruptured the long head of his biceps months ago. He continues to have discomfort and on MRI scan was found to have a partial cuff tear as well as a large remnant of the biceps in the joint and an AC joint that is arthritic. At this time, he opted to have surgery. DESCRIPTION OF PROCEDURE: After all appropriate consent forms were explained and signed, he was taken back to the operating room and at this time was given general anesthetic. Once the level of anesthesia was appropriate, we turned our attention again the patient into the left lateral decubitus position with all bony prominences well padded. Acuña bag was inflated to hold in this position. Axillary roll was placed underneath the left axilla. The arm was taken through full range of motion. The right arm was then hung with 15 pounds in standard arthroscopic fashion. The right shoulder and upper extremity were then prepped and draped in standard surgical fashion. Anatomic landmarks were drawn out and the subacromial space was infiltrated with Marcaine with epinephrine. Posterior portal was then established. Scope was placed into the shoulder joint. Anterior working portal was then made using a needle localization technique. Diagnostic arthroscopy commenced. The glenoid was in good condition. The humeral head had an area where the biceps had scuffed this to a full-thickness lesion less than 1 cm from medial to lateral and 1 cm from proximal to distal. This already had smooth edges and fibrous cartilage filled in. The remaining humeral head looked to be in good condition. The superior labrum was found to have degenerative tear. There was a large chunk of the biceps still hooked onto this as well as some scar tissue anteriorly, which was found to be anterior to the labrum going in towards the subcoracoid recess. All of this was debrided with the shaver and a SERFAS energy. All brisk venous bleeding was also coagulated. Remaining posterior and inferior labrum was found to be intact as well as the anterior labrum. No loose bodies were noted in the axillary pouch. There was some significant tearing of the undersurface of the rotator cuff and actually had divided a portion of the rotator cuff, which I felt was about 20% to 25% and it from the superior cuff and the distance between the two was large enough that you could actually drive the scope through it and there was found to be fluid in this. Therefore, the shaver introduced to remove the lower leaf . Upper leaf was left alone and found to be intact. The front was also evaluated and the subscapularis was noted to have some braided edges on the superior edge. This was also debrided with the shaver. All synovitis and brisk venous bleeding was coagulated with the SERFAS energy prior to leaving the glenohumeral joint. We then moved the camera into the subacromial space. No bony decompression was performed. The SERFAS energy was used to remove the copious amount of subacromial bursa as well as the shaver, exposing the underlying rotator cuff as well as the subacromial bone. The rotator cuff overall intact except for a small area in the front where there was a bubble. This was gently debrided with a shaver. The tissue underneath this was found to be intact and therefore, no rotator cuff repair was deemed necessary. At this time, we coagulated any brisk venous bleeding. We also exposed the entire undersurface of the distal clavicle. A needle was placed to salima this. Scope was removed. Shoulder was drained. A 15 blade was used to make an oblique incision over the AC joint. Bovie was used to coagulate any brisk venous bleeding. Full-thickness periosteal flaps were then taken to expose the distal clavicle and the AC joint. Copious amount of tissue was removed from the AC joint with a rongeur. Oscillating saw was used to remove 1 cm distal clavicle. A rasp was used to smooth off the edges. Bone wax was placed onto the bleeding cancellous bone. The wound was thoroughly irrigated and dried. Multiple deep Vicryl sutures were then used to close the periosteal sleeve. 2-0 Vicryl and nylon sutures were used to close the small incision as well as the portals. Bulky sterile dressing was then applied. The patient was then awakened, taken to recovery room in stable condition. All counts were correct at the end of the case and he did receive preoperative IV antibiotics. Job ID: [id number] Dictated by: José Israel MD <Electronically signed by José Israel MD> 04/13/22 0533 Dictated Date/Time: 04/10/22 1212 Transcribed Date/Time: 04/10/22 1321 Summer Clerk: José Cooper STLSJH
[2024-07-13] MEDS ORDERED: NA CHLORIDE 0.9% 1,000 ML ONE (10:46)
[2024-07-13 11:19] LABS: Absolute Lymphocytes (CBC) 0.6 K/uL (0.7-4.9); Absolute Monocytes 0.5 K/uL (0.1-1.3); Absolute Neutrophil 4.9 K/uL (1.8-8.0); Basophils % 0.3 % (0-1.3); Eosinophils % 0.1 % (0-4.4); Hematocrit 36.8 % (39.6-49.0); Lymphocytes % 9.5 % (15.3-44.8); MCH 32.9 pg (27.0-35.0); MCHC 35.3 g/dL (32.0-36.0); MCV 93.2 fL (80-100); MPV 7.4 fL (7.6-11.3); Monocytes % 8.3 % (3.3-12.3); Neutrophils % 81.8 % (41.7-73.7); Platelets 182 thou/uL (152-406); RBC Red Blood Cell Count 3.95 M/uL (4.33-5.43); Red Cell Distribution Width 12.2 % (12.1-15.2)
[2024-07-13 11:27] LABS: Protime INR 0.96
[2024-07-13 12:18] LABS: Albumin 3.7 g/dL (3.4-5.0); Anion Gap 6.7 mEq/L (5.0-15.0); Bilirubin Direct 0.3 mg/dL (0-0.2); Bilirubin Indirect, Calculated 1.1 mg/dL (0.2-0.8); Bilirubin Total 1.4 mg/dL (0.2-1.0); Globulin 3.8 g/dL (2.3-3.5); Magnesium 2.1 mg/dL (1.6-2.4); Potassium 3.7 mEq/L (3.5-5.1); Protein, Total 7.5 g/dL (6.4-8.2); Troponin High Sensitivity 6.2 pg/mL (<58.9)
--- NOTE | 2024-07-13 12:44 | RAD REPORT ---
EXAMINATION: CT ABDOMEN AND PELVIS WITH CONTRAST CLINICAL INDICATION: ABD PAIN TECHNIQUE: CT abdomen and pelvis was performed, after the administration of IV contrast, as per [facility]. Axial, sagittal and coronal reconstructions were obtained. One or more of the following dose reduction techniques were used: Automated exposure control, adjustment of the mA and k V according to patient size, and iterative reconstruction. Unless otherwise specified, incidental findings do not require dedicated imaging follow-up. COMPARISON: 06/10/2018 FINDINGS: LOWER CHEST: The visualized lung bases are clear. LIVER: Mild fatty liver is present. No focal lesion or biliary dilatation is seen. Grossly unremark able gallbladder. SPLEEN: Normal size. No focal lesion. PANCREAS: No mass, ductal dilation, or josefa-pancreatic fluid. ADRENALS: Normal; no mass. KIDNEYS: Normal size and contour. No hydronephrosis. GASTROINTESTINAL TRACT: No evidence of free air, significant intra-abdominal free fluid, bowel obstru ction or abscess. Moderate stool is present throughout the colon. APPENDIX: Appendix is dilated to 10 mm in anterior lower quadrant. LYMPH NODES: No lymphadenopathy. MUSCULOSKELETAL: Mild to moderate lower lumbar degenerative changes. IMPRESSION: Dilated and thickened appendix measuring up to 10 mm in the anterior right lower quadrant likely repr esenting early acute appendicitis.
[2024-07-13] MEDS ORDERED: PIPERACIL/TAZO 3.375 GM VIAL IV ONE (13:34)
[2024-07-13] MEDS ORDERED: NA CHLORIDE 0.9% 100 ML ONE (13:34)
--- NOTE | 2024-07-13 13:38 | EDPHYS ---
Physician Documentation [facility] Name: Jose Ro Age: 59 yrs Sex: Male : 1965 Arrival Date: 07/13/2024 Time: 10:27 Bed 8 Private MD: ED Physician Toni Leon HPI: 07/13 13:33 This 59 yrs old Male presents to ER via Ambulatory with complaints of kaylan Abdominal Pain, Fever. 13:33 The patient reports fever, that was measured at 100 degrees Fahrenheit. Onset: The kaylan symptoms/episode began/occurred 1 day(s) ago. Modifying factors: there are no obvious modifying factors. Associated signs and symptoms: Pertinent positives: abdominal pain. Severity of symptoms: At their worst the symptoms were mild moderate in the emergency department the symptoms are unchanged. The patient has not experienced similar symptoms in the past. Historical: - Allergies: 10:49 No Known Allergies; ap3 - PMHx: 10:49 Hyperlipidemia; Hypertension; ap3 - Immunization history:: Client reports receiving the 2nd dose of the Covid vaccine, Flu vaccine is not up to date. - Infectious Disease History:: Denies. - Social history:: Smoking status: Patient denies any tobacco usage or history of. ROS: 13:34 Constitutional: Negative for fever, chills, and weight loss, Eyes: Negative for injury, kaylan pain, redness, and discharge, ENT: Negative for injury, pain, and discharge, Neck: Negative for injury, pain, and swelling, Cardiovascular: Negative for chest pain, palpitations, and edema, Respiratory: Negative for shortness of breath, cough, wheezing, and pleuritic chest pain, Back: Negative for injury and pain, : Negative for injury, bleeding, discharge, and swelling, MS/Extremity: Negative for injury and deformity, Skin: Negative for injury, rash, and discoloration, Neuro: Negative for headache, weakness, numbness, tingling, and seizure, Psych: Negative for depression, anxiety, suicide ideation, homicidal ideation, and hallucinations, Allergy/Immunology: Negative for hives, rash, and allergies, Endocrine: Negative for neck swelling, polydipsia, polyuria, polyphagia, and marked weight changes, Hematologic/Lymphatic: Negative for swollen nodes, abnormal bleeding, and unusual bruising, 13:34 Abdomen/GI: Positive for abdominal pain, of the right lower quadrant, Exam: 13:34 Constitutional: This is a well developed, well nourished patient who is awake, alert, kaylan and in no acute distress. Head/Face: Normocephalic, atraumatic. Eyes: Pupils equal round and reactive to light, extra-ocular motions intact. Lids and lashes normal. Conjunctiva and sclera are non-icteric and not injected. Cornea within normal limits. Periorbital areas with no swelling, redness, or edema. ENT: Nares patent. No nasal discharge, no septal abnormalities noted. Tympanic membranes are normal and external auditory canals are clear. Oropharynx with no redness, swelling, or masses, exudates, or evidence of obstruction, uvula midline. Mucous membranes moist. Neck: Trachea midline, no thyromegaly or masses palpated, and no cervical lymphadenopathy. Supple, full range of motion without nuchal rigidity, or vertebral point tenderness. No Meningismus. Chest/axilla: Normal chest wall appearance and motion. Nontender with no deformity. No lesions are appreciated. Cardiovascular: Regular rate and rhythm with a normal S1 and S2. No gallops, murmurs, or rubs. Normal PMI, no JVD. No pulse deficits. Respiratory: Lungs have equal breath sounds bilaterally, clear to auscultation and percussion. No rales, rhonchi or wheezes noted. No increased work of breathing, no retractions or nasal flaring. Abdomen/GI: Soft, non-tender, with normal bowel sounds. No distension or tympany. No guarding or rebound. No evidence of tenderness throughout. Back: No spinal tenderness. No costovertebral tenderness. Full range of motion. Male : Normal genitalia with no discharge or lesions. Skin: Warm, dry with normal turgor. Normal color with no rashes, no lesions, and no evidence of cellulitis. MS/ Extremity: Pulses equal, no cyanosis. Neurovascular intact. Full, normal range of motion., bilateral aka Neuro: Awake and alert, GCS 15, oriented to person, place, time, and situation. Cranial nerves II-XII grossly intact. Motor strength 5/5 in all extremities. Sensory grossly intact. Cerebellar exam normal. Normal gait. Psych: Awake, alert, with orientation to person, place and time. Behavior, mood, and affect are within normal limits. 13:34 ECG was reviewed by the Attending Physician. 13:34 Abdomen/GI: Inspection: abdomen appears normal, Bowel sounds: normal, Palpation: moderate abdominal tenderness, in the right lower quadrant, Liver: no appreciated palpable abnormalities, Hernia: not appreciated, Vital Signs: 10:46 BP 147 / 87; Pulse 85; Resp 17; Temp 98.2(O); Pulse Ox 100% ; Weight 79.38 kg; Height 6 ap3 ft. 0 in. ; Pain 6/10; 12:30 BP 132 / 86; Pulse 74; Resp 18; Pulse Ox 98% ; ph 13:47 BP 144 / 87; Pulse 75; Resp 14; Pulse Ox 97% on R/A; ph 15:00 BP 146 / 84; Pulse 76; Resp 16; Temp 98; Pulse Ox 99% on R/A; ph 10:46 Body Mass Index 23.73 (79.38 kg, 182.88 cm) ap3 10:46 Pain Scale: Adult ap3 [place] Coma Score: 13:34 Eye Response: spontaneous(4). Motor Response: obeys commands(6). Verbal Response: kaylan oriented(5). Total: 15. MDM: 10:29 Medical Screening Exam initiated 07/13 10:30 Order name: Basic Metabolic Panel; Complete Time: 12:27 [facility] 07/13 10:30 Order name: CBC with Diff; Complete Time: 12:27 [facility] 07/13 10:30 Order name: LFT's; Complete Time: 12:27 [facility] 07/13 10:30 Order name: Magnesium; Complete Time: 12:27 [facility] 07/13 10:30 Order name: NT PRO-BNP; Complete Time: 12:27 [facility] 07/13 10:30 Order name: PT-INR; Complete Time: 12:27 [facility] 07/13 10:30 Order name: Troponin HS; Complete Time: 12:27 [facility] 07/13 10:30 Order name: Lipase; Complete Time: 12:27 [facility] 07/13 10:30 Order name: UA Rfx Norris Cult if indicated 07/13 14:13 Order name: Basic Metabolic Panel [facility] 07/13 14:13 Order name: Basic Metabolic Panel [facility] 07/13 14:13 Order name: Basic Metabolic Panel [facility] 07/13 14:13 Order name: CBC with Automated Diff [facility] 07/13 14:14 Order name: CBC with Automated Diff [facility] 07/13 14:14 Order name: CBC with Automated Diff [facility] 07/13 10:30 Order name: XRAY Chest (1 view) [facility] 07/13 10:30 Order name: CT Abd/Pelvis - IV Contrast Only; Complete Time: 13:04 [facility] 07/13 10:30 Order name: Cardiac monitoring; Complete Time: 10:57 [facility] 07/13 10:30 Order name: EKG - Nurse/Tech; Complete Time: 10:53 [facility] 07/13 10:30 Order name: IV Saline Lock; Complete Time: 11:13 [facility] 07/13 10:30 Order name: Labs collected and sent; Complete Time: 11:13 [facility] 07/13 10:30 Order name: O2 Per Protocol; Complete Time: 10:48 [facility] 07/13 10:30 Order name: O2 Sat Monitoring; Complete Time: 10:48 [facility] 07/13 13:30 Order name: NPO; Complete Time: 13:30 [facility] EC:34 Rate is 73 beats/min. Rhythm is regular. QRS Baxter is Normal. AL interval is normal. QRS kaylan interval is normal. QT interval is normal. No Q waves. T waves are Normal. No ST changes noted. Clinical impression: NSR w/ Non-specific ST/T Changes and No evidence of ischemia. Reviewed by me. Administered Medications: 11:18 Drug: NS 0.9% IV 1000 ml IV at 1 bolus Per protocol; to be given as a bolus over 60 iw minutes Route: IV; Rate: 1 bolus; Site: left antecubital; 12:30 Follow up: Response: No adverse reaction; IV Status: Completed infusion; IV Intake: ph 1000ml 13:47 Drug: Piperacillin-Tazobactam IVPB 3.375 grams IVPB once over 60 mins; (mix in NS 100 ph mL) Route: IVPB; Infused Over: 60 mins; Site: left antecubital; 14:50 Follow up: Response: No adverse reaction; IV Status: Completed infusion ph Disposition Summary: 07/13/24 13:38 Hospitalization Ordered Notes: Hospitalization Status: Observation kaylan Provider: Cookie Snow cha Location: Telemetry/MedSurg (observation) kaylan Condition: Fair kaylan Problem: new kaylan Symptoms: have improved kaylan Bed/Room Type: Standard [facility] Room Assignment: 225(07/13/24 14:53) ty Diagnosis - Acute appendicitis with localized peritonitis kaylan Forms: - Medication Reconciliation Form kaylan - SBAR form kaylan - Leadership Thank You Letter kaylan Signatures: Dispatcher [employer] EDMS Toni Leon MD MD cha Williams, Irene, RAMA ONTIVEROS iw Anamaria Shaffer RN RN Sonja Reyes RN RN ap3 Phoenix Neff ty Corrections: (The following items were deleted from the chart) 10:31 10:31 BASIC METABOLIC PANEL+C.LAB.BRZ ordered. EDMS EDMS 10:31 10:31 CBC+H.LAB.BRZ ordered. EDMS EDMS 10:31 10:31 HEPATIC FUNCTION+C.LAB.BRZ ordered. EDMS EDMS 10:31 10:31 MAGNESIUM+C.LAB.BRZ ordered. EDMS EDMS 10:31 10:31 PROBNP+C.LAB.BRZ ordered. EDMS EDMS 10:31 10:31 PROTIME (+INR)+COAG.LAB.BRZ ordered. EDMS EDMS 10:31 10:31 Troponin High Sensitivity+C.LAB.BRZ ordered. EDMS EDMS 10:31 10:31 LIPASE+C.LAB.BRZ ordered. EDMS EDMS 10:31 10:31 UA Rfx Norris Cult if indicated+U.LAB.BRZ ordered. EDMS EDMS 10:31 10:31 Chest Single View+RAD.RAD.BRZ ordered. EDMS EDMS 10:32 10:32 Abdomen Pelvis W Con+CT.RAD.BRZ ordered. EDMS EDMS 14:53 13:38 kaylan ty
--- NOTE | 2024-07-13 13:38 | ER ---
Nurse's Notes [facility] Name: Jose Ro Age: 59 yrs Sex: Male : 1965 Arrival Date: 07/13/2024 Time: 10:27 Bed 8 Private MD: Diagnosis: Acute appendicitis with localized peritonitis Presentation: 07/13 10:46 Chief complaint: Patient states: he started having diffuse abdominal pain yesterday ap3 that is now localized to the right lower quadrant. patient currently rates his pain as a 6/10 on the pain scale. patient denies any nausea or vomiting. Coronavirus screen: At this time, the client does not indicate any symptoms associated with coronavirus-19. Ebola Screen: No symptoms or risks identified at this time. Initial Sepsis Screen: Does the patient meet any 2 criteria? No. Patient's initial sepsis screen is negative. Does the patient have a suspected source of infection? No. Patient's initial sepsis screen is negative. Risk Assessment: Do you want to hurt yourself or someone else? Patient reports no desire to harm self or others. Onset of symptoms was July 12, 2024. 10:46 Method Of Arrival: Ambulatory ap3 10:46 Acuity: KB 3 ap3 Triage Assessment: 10:50 General: Appears in no apparent distress. Behavior is calm, cooperative, appropriate ap3 for age. Pain: Complains of pain in right lower quadrant Pain currently is 6 out of 10 on a pain scale. Neuro: Level of Consciousness is awake, alert, obeys commands, Oriented to person, place, time, situation, Appropriate for age. Cardiovascular: Patient's skin is warm and dry. Respiratory: Airway is patent Respiratory effort is even, unlabored, Respiratory pattern is regular, symmetrical. GI: Reports lower abdominal pain. Historical: - Allergies: 10:49 No Known Allergies; ap3 - PMHx: 10:49 Hyperlipidemia; Hypertension; ap3 - Immunization history:: Client reports receiving the 2nd dose of the Covid vaccine, Flu vaccine is not up to date. - Infectious Disease History:: Denies. - Social history:: Smoking status: Patient denies any tobacco usage or history of. Screenin:50 [facility] ED Fall Risk Assessment (Adult) History of falling in the last 3 months, ap3 including since admission No falls in past 3 months (0 pts) Confusion or Disorientation No (0 pts) Intoxicated or Sedated No (0 pts) Impaired Gait No (0 pts) Mobility Assist Device Used No (0 pt) Altered Elimination No (0 pt) Score/Fall Risk Level 0 - 2 = Low Risk Oriented to surroundings, Maintained a safe environment, Educated pt \T\ family on fall prevention, incl call for assistance when getting out of bed, Assessed \T\ reinforced patient's understanding of fall precautions, Hourly rounding (assess needs \T\ fall precautionary measures) done, Used ambulatory aids as needed (educated on \T\ assisted with). Abuse screen: Denies threats or abuse. Nutritional screening: No deficits noted. Tuberculosis screening: No symptoms or risk factors identified. Assessment: 11:17 General: Appears in no apparent distress. comfortable, well groomed, Behavior is calm, ph cooperative, appropriate for age. Pain: Complains of pain in right lower quadrant. Neuro: Level of Consciousness is awake, alert, obeys commands, Oriented to person, place, time, situation. Cardiovascular: Capillary refill < 3 seconds in bilateral fingers Patient's skin is warm and dry. Respiratory: Airway is patent Respiratory effort is even, unlabored. GI: Bowel sounds present X 4 quads. Abd is soft X 4 quads Reports lower abdominal pain. Derm: Skin is pink, warm \T\ dry. Vital Signs: 10:46 BP 147 / 87; Pulse 85; Resp 17; Temp 98.2(O); Pulse Ox 100% ; Weight 79.38 kg; Height 6 ap3 ft. 0 in. ; Pain 6/10; 12:30 BP 132 / 86; Pulse 74; Resp 18; Pulse Ox 98% ; ph 13:47 BP 144 / 87; Pulse 75; Resp 14; Pulse Ox 97% on R/A; ph 15:00 BP 146 / 84; Pulse 76; Resp 16; Temp 98; Pulse Ox 99% on R/A; ph 10:46 Body Mass Index 23.73 (79.38 kg, 182.88 cm) ap3 10:46 Pain Scale: Adult ap3 [place] Coma Score: 13:34 Eye Response: spontaneous(4). Motor Response: obeys commands(6). Verbal Response: kaylan oriented(5). Total: 15. ED Course: 10:29 Patient arrived in ED. mr 10:29 Toni Leon MD is Attending Physician. kaylan 10:47 Anamaria Shaffer, RN is Primary Nurse. ph 10:49 Triage completed. ap3 10:51 Arm band placed on right wrist. ap3 10:53 EKG done, by ED staff, reviewed by Toni Leon MD. nh2 10:58 Patient has correct armband on for positive identification. Bed in low position. Call ph light in reach. Side rails up X 1. radiation monitor on. Pulse ox on. NIBP on. Door closed. Noise minimized. Warm blanket given. Pillow given. 11:00 Inserted saline lock: 20 gauge in left antecubital area, using aseptic technique. Blood ph collected. Flushed with 10 mL NS. 11:12 Lipase Sent. nh2 11:12 Basic Metabolic Panel Sent. nh2 11:12 CBC with Diff Sent. nh2 11:12 LFT's Sent. nh2 11:12 Magnesium Sent. nh2 11:12 NT PRO-BNP Sent. nh2 11:12 PT-INR Sent. nh2 11:12 Troponin HS Sent. nh2 11:15 Provided Education on: Estimated time for test reulst. ph 12:28 CT Abd/Pelvis - IV Contrast Only In Process Unspecified. EDMS 12:35 XRAY Chest (1 view) In Process Unspecified. EDMS 13:38 Cookie Snow MD is Hospitalizing Provider. [facility] 13:47 UA Rfx Norris Cult if indicated Sent. ph 13:47 Urine collected: clean catch specimen, clear. ph 15:55 No provider procedures requiring assistance completed. Patient admitted, IV remains in ph place. Administered Medications: 11:18 Drug: NS 0.9% IV 1000 ml IV at 1 bolus Per protocol; to be given as a bolus over 60 iw minutes Route: IV; Rate: 1 bolus; Site: left antecubital; 12:30 Follow up: Response: No adverse reaction; IV Status: Completed infusion; IV Intake: ph 1000ml 13:47 Drug: Piperacillin-Tazobactam IVPB 3.375 grams IVPB once over 60 mins; (mix in NS 100 ph mL) Route: IVPB; Infused Over: 60 mins; Site: left antecubital; 14:50 Follow up: Response: No adverse reaction; IV Status: Completed infusion ph Medication: 10:58 VIS not applicable for this client. ph Intake: 12:30 IV: 1000ml; Total: 1000ml. ph Outcome: 13:38 Decision to Hospitalize by Provider. kaylan 15:57 Patient left the ED. ph 15:57 Admitted to Med/surg accompanied by tech, family with patient, via wheelchair, with ph chart, 15:57 Condition: good 15:57 Instructed on the need for admit, Signatures: Dispatcher [employer] EDMS Toni Leon MD MD cha Rivera, Kallie, Reg Reg mr Alba Greenfield RN RN Anamaria Shaffer RN RN Sonja Schmitt RN RN ap3 Nick Coronado, [facility] Corrections: (The following items were deleted from the chart) 18:31 13:47 Pulse 75bpm; Resp 14bpm; Pulse Ox 97% RA; ph ph
[2024-07-13 13:50] LABS: Specific Gravity > 1.030 (1.005-1.030); Urine Bilirubin NEGATIVE (Negative); Urine Blood Negative (Negative); Urine Clarity Clear (Clear); Urine Color Colorless (Yellow); Urine Glucose NEGATIVE (Negative); Urine Ketones 1+ (Negative); Urine Microscopic Reflex YN NO UMIC; Urine Nitrite NEGATIVE (Negative); Urine Protein NEGATIVE (Negative); Urine Urobilinogen Normal (Normal); Urine pH 5.5 (5.0-7.0)
[2024-07-13] MEDS ORDERED: MORPHINE 2 MG/ML SYR IV PRN (14:10)
[2024-07-13] MEDS ORDERED: ACETAMINOPHEN 325 MG TABLET PO PRN (14:10)
[2024-07-13] MEDS ORDERED: ONDANSETRON 4 MG/2 ML VIAL IV PRN (14:10)
[2024-07-13] MEDS ORDERED: HYDROCODONE/APAP 5/325 MG TAB PO PRN (14:10)
--- NOTE | 2024-07-13 14:21 | RAD REPORT ---
EXAMINATION: ONE VIEW CHEST XR CLINICAL INDICATION: ABDOMINAL DISTENTION TECHNIQUE: Frontal chest projection is submitted. Examination is limited by patient positioning and t echnique. COMPARISON: No prior exam. FINDINGS: The lungs are well inflated and clear. The heart is upper limit of normal in size. No displaced fract ures identified. IMPRESSION: No acute intrathoracic abnormalities.
--- NOTE | 2024-07-13 14:35 | P.HP ---
Certification for Inpatient Patient admitted to: Observation With expected LOS: <2 Midnights Patient will require the following post-hospital care: None Practitioner: I am a practitioner with admitting privileges, knowledge of patient current condition, hospital course, and medical plan of care. Services: Services provided to patient in accordance with Admission requirements found in Title 42 Section 412.3 of the Code of Federal Regulations Patient History Date of Service: 07/13/24 Reason for admission: Acute appendicitis History of Present Illness: 59-year-old male with history of GERD, hypertension, hyperlipidemia presented to the emergency department for 1 day of right lower quadrant abdominal pain with fevers at home. Patient was evaluated in the emergency department, his labs were significant for a sodium of [address] of the abdomen and pelvis was performed which was concerning for acute appendicitis. ED staff discussed case with general surgery who plans for laparoscopic appendectomy today. Patient to be made to the hospitalist service for further management. Allergies No Known Allergies Allergy (Unverified 07/13/24 14:28) - Past Medical/Surgical History -: Hypertension -: hyperlipidemia -: Gastritis/GERD/diverticulosis/duodenitis -: Shoulder surgery Psychosocial/ Personal History: Lives at home with family - Social History Smoking Status: Never smoker Alcohol use: Yes CD- Drugs: No Caffeine use: No Place of Residence: Home Review of Systems 10-point ROS is otherwise unremarkable Gastrointestinal: Nausea, Abdominal Pain Physical Examination - Physical Exam General: Alert, In no apparent distress, Oriented x3 HEENT: Atraumatic, PERRLA, Mucous membr. moist/pink Neck: Supple, 2+ carotid pulse no bruit, No LAD Respiratory: Clear to auscultation bilaterally, Normal air movement Cardiovascular: Regular rate/rhythm, Normal S1 S2 Gastrointestinal: Normal bowel sounds, No tenderness Musculoskeletal: No tenderness Integumentary: No rashes Neurological: Normal speech, Normal strength at 5/5 x4 extr, Normal affect - Studies Laboratory Data (last 24 hrs) 07/13/24 07/13/24 07/13/24 11:05 11:05 11:05 WBC 6.00 Hgb 13.0 L Hct 36.8 L Plt Count 182 PT 11.0 INR 0.96 Sodium 132 L Potassium 3.7 BUN 13 Creatinine 1.28 Glucose 97 Magnesium 2.1 Total Bilirubin 1.4 H AST 27 ALT 38 Alkaline Phosphatase 49 Lipase 16 Assessment and Plan - Plan Assessment: Acute appendicitis Hypertension Hyperlipidemia GERD Plan: Acute appendicitis N.p.o., IVF, IV antibiotics and as needed pain medications Surgery plans for laparoscopic appendectomy today Diet after surgery per general surgery Hypertension Hyperlipidemia GERD Continue home medications when verified and tolerating p.o. DVT PPX: SCD Code status: Full Discharge Plan: Home Plan to discharge in: 24 Hours - Advance Directives Does patient have a Living Will: No Does patient have a Durable POA for Healthcare: No - Code Status/Comfort Care Code Status Assessed: Yes (Full code) Critical Care: No Time Spent Managing Pts Care (In Minutes): 67
[2024-07-13] MEDS: NA CHLORIDE 0.9% 1,000 ML IV SCH (15:00)
[2024-07-13] MEDS ORDERED: FENTANYL CITR 100 MCG/2 ML ONE (15:35)
[2024-07-13] MEDS ORDERED: propofoL 200 MG/20 ML VIAL IV ONE (15:35)
[2024-07-13] MEDS ORDERED: LIDOCAINE 1% MPF 2 ML AMPULE ONE (15:35)
[2024-07-13] MEDS ORDERED: MIDAZOLAM HCL 2 MG/2 ML INJ ONE (15:36)
[2024-07-13] MEDS ORDERED: ROCURONIUM 50 MG/5 ML VIAL IV ONE (15:37)
[2024-07-13] MEDS ORDERED: ONDANSETRON 4 MG/2 ML VIAL ONE (15:37)
[2024-07-13] MEDS ORDERED: dexAMETHasone 10 MG/ML VIAL ONE (15:37)
[2024-07-13] MEDS ORDERED: KETOROLAC 30 MG/ML INJ ONE (15:37)
[2024-07-13] MEDS ORDERED: NEOSTIGMINE 1 MG/ML -10 ML VIAL ONE (15:37)
[2024-07-13] MEDS ORDERED: GLYCOPYRROLATE 0.2 MG/ML SYR ONE (15:38)
[2024-07-13 16:11] VITALS: BMI 23.7
[2024-07-13] MEDS: Ringers Lactate 1,000 ML IV ONE (16:45)
[2024-07-13] MEDS: PIPER TAZO 3.375 GM in NA CHLORIDE 0.9% 100 ML IV SCH (17:00)
--- NOTE | 2024-07-13 17:35 | P.BOP ---
Preoperative diagnosis: acute appendicitis Postoperative diagnosis: SAME Primary procedure: Laparoscopic appendectomy Estimated blood loss: <10cc Specimen: anabelle Findings: as above Anesthesia: General Complications: None Transferred to: Recovery Room Condition: Good
[2024-07-13 18:22] VITALS: O2SAT 100
--- NOTE | 2024-07-13 19:22 | CON ---
Date of Consultation: 07/13/2024 Diagnosis: Acute appendicitis. History Of Present Illness: This is the case of a 59-year-old patient who comes to us complaining of right lower quadrant tenderness that started 1 day ago, associated with fever, nausea. Today, he de cided to come to the ER diagnosed with acute appendicitis. He has history of GERD, hypertension, hyp erlipidemia. He does not recall his last colonoscopy. He denies any dysuria, hematuria, hematochezi a, melena. Denies any recent traveling out of the country. Denies any family member sick at home. Review of Systems: Ten points otherwise unremarkable. Allergies: NONE. Past Medical History: As above. Past Surgical History: Include shoulder surgery. Social History: He does not smoke. He does not drink alcohol. Family History: Noncontributory. Physical Examination: Vital Signs: Reviewed. General: Patient is awake, alert. Pupils are equal and reactive. Anicteric. Neck: Supple. Chest: Clear. Heart: S1, S2. Abdomen: Right lower quadrant tenderness with guarding. Psoas signs positive. Rectal/Genitalia: Deferred. Extremities: Good capillary refill. Laboratory Data: Blood work shows WBC count of 6 with a hemoglobin of 13 and platelets of 182. INR is 0.96, potassium 3.7, total bilirubin of 1.4, alkaline phosphatase 49, lipase 16. CAT scan of the abdomen and pelvis interpreted by Dr. Chamberlain as dilated and thickened appendix measuring up to 10 mm, c onsistent with acute appendicitis. Assessment: This is a 59-year-old patient with acute appendicitis. The benefits, alternatives, and risks of laparoscopic, possible open appendectomy fully explained, which include, but not limited to infection, bleeding, damage to adjacent structures, anesthesia complication, myocardial infarction, a nd even . He also understands this may not relieve symptoms, he might need more than 1 surgical intervention. The OR was immediately called. He was also advised the importance of following up wi th his GI doctor to see the timing of his colonoscopy. ROMELIA/GAIL Voice ID: [id number] Report ID: [id number]
--- NOTE | 2024-07-13 20:12 | OP ---
Date of Procedure: 07/13/2024 Surgeon: Slim Mallory MD Preoperative Diagnosis: Acute appendicitis. Preoperative Diagnosis: Acute appendicitis. Procedure: Laparoscopic appendectomy. Estimated Blood Loss: Less than 10 cc. Specimen: Appendix. Findings: Acute appendicitis. Anesthesia: General plus local. Complications: None. Indications: This is the case of a 59-year-old patient who comes to us with acute appendicitis. The benefits, alternatives, and risks of laparoscopic, possible open appendectomy were fully explained, which include, but not limited to infection, bleeding, damage to adjacent structures, anesthesia, com plication, SD, and even . He also understands this may not relieve symptoms, he might need more than one surgical intervention. He understood, signed a consent. Description Of Procedure: The patient was brought to the operating room, placed in supine position. Anesthesia was done without complication. Abdominal area was prepped and draped in sterile fashion. Marcaine 0.5% was injected for local anesthetic, followed by sharp incision of skin in the infraumb ilical region. Incision was carried down to fascia, which was opened under direct vision. Peritoneu m was encountered, opened under direct vision. Vicryl #1 placed inside the fascia. Kedar trocar wa s carefully introduced. Pneumoperitoneum was obtained. I placed 2 more trocars, 5 mm each one of th em in the suprapubic and left lower quadrant under direct visualization. This allowed me to put a gr asper in the area of the appendix. There was still mesoappendix inflammation. I believe this would be better served if we take that area with the help of LigaSure, so we opened the LigaSure, removed s ome adhesions since it was partially retrocecal and then proceeded then to transect the mesoappendix with the help of LigaSure and then the appendix removed at the base with the Endo-OLIVE 45 mm nonvascul ar. Appendix removed from abdominal cavity using EndoCatch through the umbilical incision. The area was inspected once again after irrigation. No bowel leak. No bleeding. At that moment, I proceede d to remove the trocars under direct vision, deflated pneumoperitoneum, closed the fascia with #1 Warren ryl. Irrigated subcutaneous tissue, closed that with 3-0 chromic, and skin with ning. Sponge cou nt and instrument counts correct. Patient tolerated the procedure well. Patient was sent to recover y in stable condition. HM/MODL Voice ID: [id number] Report ID: [id number]
[2024-07-14 04:51] LABS: Absolute Lymphocytes (CBC) 0.4 K/uL (0.7-4.9); Absolute Monocytes 0.2 K/uL (0.1-1.3); Absolute Neutrophil 3.7 K/uL (1.8-8.0); Basophils % 0.1 % (0-1.3); Hematocrit 34.7 % (39.6-49.0); Hemoglobin 12.3 g/dL (13.6-17.9); Lymphocytes % 9.9 % (15.3-44.8); MCH 33.1 pg (27.0-35.0); MCHC 35.5 g/dL (32.0-36.0); MCV 93.1 fL (80-100); MPV 7.4 fL (7.6-11.3); Monocytes % 3.6 % (3.3-12.3); Neutrophils % 86.4 % (41.7-73.7); Platelets 164 thou/uL (152-406); RBC Red Blood Cell Count 3.73 M/uL (4.33-5.43); Red Cell Distribution Width 12.5 % (12.1-15.2)
[2024-07-14 05:09] LABS: Anion Gap 8.1 mEq/L (5.0-15.0); Potassium 4.1 mEq/L (3.5-5.1)
--- NOTE | 2024-07-14 06:33 | P.DS ---
Admission Date: 07/13/24 Discharge Date: 07/14/24 Disposition: ROUTINE DISCHARGE Discharge Condition: GOOD Reason for Admission: Acute appendicitis Brief History of Present Illness: 59-year-old male with history of GERD, hypertension, hyperlipidemia presented to the emergency department for 1 day of right lower quadrant abdominal pain with fevers at home. Patient was evaluated in the emergency department, his labs were significant for a sodium of [address] of the abdomen and pelvis was performed which was concerning for acute appendicitis. ED staff discussed case with general surgery who plans for laparoscopic appendectomy today. Patient to be made to the hospitalist service for further management. Hospital Course: Assessment: Acute appendicitis Hypertension Hyperlipidemia GERD Patient was admitted to the hospital for acute appendicitis. He underwent laparoscopic appendectomy on 07/11 2 in the evening and he is doing well postoperatively. He is stable for discharge and outpatient follow-up with general surgery in 1 week. Pain medication sent to pharmacy [facility] in [place] Follow-up with Dr. Mallory in 1 week Keep surgical area for 48h then may remove outer dressing and shower. Keep ning intact and cover with antibiotic ointment and bandaid Vital Signs/Physical Exam: Temp Pulse Resp BP Pulse Ox 97.4 F 62 14 107/60 97 07/14/24 04:00 07/14/24 04:00 07/14/24 04:00 07/14/24 04:00 07/14/24 04:00 General: Alert, In no apparent distress, Oriented x3 HEENT: Atraumatic, PERRLA Neck: Supple, JVD not distended Respiratory: Clear to auscultation bilaterally, Normal air movement Cardiovascular: Regular rate/rhythm, Normal S1 S2 Gastrointestinal: Tenderness (mild lower abd tenderness) Musculoskeletal: No tenderness Integumentary: No rashes Neurological: Normal speech, Normal tone, Normal affect Laboratory Data at Discharge: WBC 4.30 thou/uL (4.3-10.9) 07/14/24 04:31 Hgb 12.3 g/dL (13.6-17.9) L 07/14/24 04:31 Hct 34.7 % (39.6-49.0) L 07/14/24 04:31 Plt Count 164 thou/uL (152-406) 07/14/24 04:31 PT 11.0 SECONDS (10-13.0) 07/13/24 11:05 INR 0.96 07/13/24 11:05 Sodium 135 mEq/L (136-145) L 07/14/24 04:31 Potassium 4.1 mEq/L (3.5-5.1) 07/14/24 04:31 BUN 13 mg/dL (7-18) 07/14/24 04:31 Creatinine 0.94 mg/dL (0.70-1.30) 07/14/24 04:31 Glucose 137 mg/dL (74-106) H 07/14/24 04:31 Magnesium 2.1 mg/dL (1.6-2.4) 07/13/24 11:05 Total Bilirubin 1.4 mg/dL (0.2-1.0) H 07/13/24 11:05 AST 27 U/L (15-37) 07/13/24 11:05 ALT 38 U/L (16-61) 07/13/24 11:05 Alkaline Phosphatase 49 U/L (45-117) 07/13/24 11:05 Lipase 16 U/L (13-75) 07/13/24 11:05 Home Medications: Amlodipine [Norvasc*] 5 mg PO DAILY 07/13/24 Famotidine [Pepcid*] 20 mg PO DAILY 07/13/24 Losartan Potassium [Cozaar] 100 mg PO DAILY 07/13/24 Rosuvastatin [Crestor*] 10 mg PO BEDTIME 07/13/24 Physician Discharge Instructions: Patient was admitted to the hospital for acute appendicitis. He underwent laparoscopic appendectomy on 07/11 2 in the evening and he is doing well postoperatively. He is stable for discharge and outpatient follow-up with general surgery in 1 week. Pain medication sent to pharmacy [facility] in [place] Follow-up with Dr. Mallory in 1 week Keep surgical area for 48h then may remove outer dressing and shower. Keep sta ples intact and cover with antibiotic ointment and bandaid Activity: No lifting more than 10 lbs Followup: Slim Mallory MD [ACTIVE - CAN ADMIT] - 1 Week NONE,NONE [Primary Care Provider] - Time spent managing pt's care (in minutes): 31
[2024-07-14 08:38] VITALS: BP 129/64; TEMP 97.6
[2024-07-14 09:12] LABS: Differential Total Cells Count 100; Segmented Neutrophils 85 % (40-80)
[2024-07-14 09:13] LABS: Blood Morphology Comment NOT SEEN (NOT SEEN); Lymphocytes 6 % (15-42); Metamyelocytes 1 % (0-0); Monocytes 8 % (0-10); Platelet Estimate ADEQ
--- NOTE | 2024-07-18 12:38 | EKG ---
Test Date: 2024-07-13 Test Time: 10:50:29 Stylist Apprentice: ALBERTO MEASUREMENT RESULTS: Intervals: Rate: 73 PA: 134 QRSD: 94 QT: 374 QTc: 412 [place]: P: 60 PA: 134 QRS: 10 T: 18 INTERPRETIVE STATEMENTS: Normal sinus rhythm Normal ECG No previous ECG available for comparison Electronically Signed On 07-18-24 12:27:45 CDT by Elgin Villanueva
== END 2024-07-14 08:55 | disposition home or self-care (01) ==
LOC: ER 10:27 → ERHOLD 14:09 → 2ND 15:40
PROVIDERS: ADMIT Hospitalist; ATTEND Hospitalist
PROC: 0DTJ4ZZ Resection of Appendix, Percutaneous Endoscopic Approach (ICD-10-PCS; principal; 2024-07-13 17:00)
DX: K35.80 Unspecified acute appendicitis (principal); I10 Essential (primary) hypertension; K21.9 Gastro-esophageal reflux disease without esophagitis; E78.5 Hyperlipidemia, unspecified; R10.31 Right lower quadrant pain
CPT/HCPCS: 96365; 96361; 93005; 85025 ×2; 80048 ×2; 36415; 83735; 85610; 80076; 88304; 81003; 84484; 83690; 83880; 74177; 71045; 94010; 99285; 44970; Q9967; A4314; J2704; J2710; J2543 ×3; J2250; J3010; J1100; J2405; G0378 ×5; J7120; J7030 ×3